=== PATIENT | female | born 1980 | race Caucasian/White ===

== ENCOUNTER 2016-09-21 09:51 | Emergency (ER) | payer MEDICAID ==
[2016-09-21] MEDS ORDERED: ONDANSETRON HCL IV 4 MG/2 ML VIAL IVP ONE (10:05)
--- NOTE | 2016-09-21 10:10 | Emergency Department Record ---
History of Present Illness - General Chief complaint: Nausea, Vomiting, Diarrhea Stated complaint: NAUSEATED/FACIAL SWELLING/DIARRHEA Time Seen by Provider: 09/21/16 10:05 Source: Patient Mode of Arrival: Ambulatory Limitations: No limitations - History of Present Illness Initial comments: 35 yo female presents to ED with a CC of nausea, vomiting, and loose stools this morning as well as "facial swelling" for the past 2-3 weeks. Patient denies fevers, chills, abdominal pain, or urinary symptoms. Patient denies dental pain or swelling. Patient reports a history of asthma. MD complaint: Nausea, Vomiting Onset/Timin -: Days(s) Associated Abdominal Pain: No Radiation: None Consistency: Intermittent Improves with: None Worsens with: None Associated Symptoms: Nausea/vomiting - Related Data Home Medications Medication Instructions Recorded Confirmed Last Taken Fluoxetine HCl 20 mg PO DAILY 05/22/14 09/21/16 09/20/16 Pregabalin [Lyrica] 75 mg PO BID 05/22/14 09/21/16 09/20/16 Albuterol Sulfate 0.083% [Neb] 3 ml NEB .EVERY 4-6 HOURS PRN 06/11/15 09/21/16 09/20/16 Budesonide/Formoterol Fumarate 2 puff INH BID 01/10/16 09/21/16 09/20/16 [Symbicort 160-4.5 Mcg Inhaler] Cetirizine HCl 10 mg PO DAILY 01/10/16 09/21/16 09/20/16 Pantoprazole Sodium [Protonix] 40 mg PO DAILYAC 01/11/16 09/21/16 09/20/16 Previous Rx's Medication Instructions Recorded Ipratropium/Albuterol [Duoneb] 3 ml INH RESP.Q6H PRN #0 ampul.neb 01/11/16 Ondansetron [Zofran Odt] 4 mg PO Q8H #20 tab.rapdis 03/30/16 Ondansetron [Zofran Odt] 4 mg PO Q6H PRN #20 tab.rapdis 09/21/16 Allergies Allergy/AdvReac Type Severity Reaction Status Date / Time No Known Drug Allergies Allergy Verified 01/10/16 18:30 Travel Screening - Travel/Exposure Within Last 30 Days Have you traveled within the last 30 days?: No - Travel/Exposure Within Last Year Have you traveled outside the [place] in the last year?: No - Additonal Travel Details Have you been exposed to anyone with a communicable illness?: No - Travel Symptoms Symptom Screening: None Review of Systems Constitutional: Denies: Chills, Malaise, Night sweats Eyes: Denies: Eye discharge, Eye pain ENT: Denies: Congestion, Ear pain, Epistaxis Respiratory: Denies: Cough, Dyspnea Cardiovascular: Denies: Chest pain, Dyspnea on exertion Endocrine: Denies: Fatigue, Heat or cold intolerance Gastrointestinal: Reports: Nausea, Vomiting. Denies: Abdominal pain Genitourinary: Denies: Dysuria, Frequency Musculoskeletal: Denies: Arthralgia, Back pain, Gout, Joint swelling, Other Skin: Denies: Bruising, Change in color, Change in hair/nails, Rash Neurological: Denies: Abnormal gait, Confusion, Headache, Seizure Psychiatric: Denies: Anxiety Hematological/Lymphatic: Denies: Anemia, Blood Clots Past Medical History - SOCIAL HISTORY Smoking Status: Former smoker Alcohol Use: None Drug Use: None - RESPIRATORY Hx Respiratory Disorders: Yes Hx Asthma: Yes - CARDIOVASCULAR Hx Cardio Disorders: Yes Hx Edema: Yes (BLE) - NEURO Hx Neuro Disorders: Yes Hx Headaches: Yes Hx Neuropathy: Yes (Bilateral hands and feet) - GI Hx GI Disorders: Yes Hx Abdominal Pain: Yes (LUQ & RLQ, increase with eatting) Hx GI Bleed: Yes (with vomiting) Hx Reflux: Yes Hx Irritable Bowel: Yes Hx Nausea/Vomiting: Yes Hx Rectal Bleeding: Yes - Hx Genitourinary Disorders: No Comment:: 10/22/14 - ENDOCRINE Hx Endocrine Disorders: No Hx Diabetes: No Hx Thyroid Disease: No - MUSCULOSKELETAL Hx Musculoskeletal Disorders: Yes Hx Fibromyalgia: Yes (generalized) Comment:: R hip issues; sees pain specialist - PSYCH Hx Psych Problems: Yes Hx Anxiety: Yes Hx Depression: Yes - HEMATOLOGY/ONCOLOGY Hx Hematology/Oncology Disorders: Yes Hx Bruising: Yes Family Medical History Any Significant Family History?: No Hx Cancer: Grandparents *Cancer Comment: lung w/ mets Hx Diabetes: Grandparents Hx HTN: Grandparents Hx Stroke: Grandparents Physical Exam - General General Appearance: Alert, Oriented x3, Cooperative, No acute distress Limitations: No limitations - Head Head exam: Atraumatic, Normocephalic, Other (very subtle STS of the maxillary region right face, no erythema, no sign of abscess. No dental abscess on examination.) Head exam detail: negative: Abrasion, Contusion, Sidhu's sign, General tenderness, Hematoma, Laceration - Eye Eye exam: Normal appearance. negative: Conjunctival injection, Periorbital swelling, Periorbital tenderness, Scleral icterus - ENT Ear exam: negative: Auricular hematoma, Auricular trauma Nasal Exam: negative: Active bleeding, Discharge, Dried blood, Foreign body Mouth exam: negative: Drooling, Laceration, Muffled voice, Tongue elevation - Neck Neck exam: Normal inspection. negative: Meningismus, Tenderness - Respiratory Respiratory exam: Normal lung sounds bilaterally. negative: Rales, Respiratory distress, Rhonchi, Stridor - Cardiovascular Cardiovascular Exam: Regular rate, Normal rhythm, Normal heart sounds - GI/Abdominal GI/Abdominal exam: Soft, Other (Abdominal examination is 100% benign on examination.). negative: Rebound, Rigid, Tenderness - Rectal Rectal exam: Deferred - exam: Deferred - Extremities Extremities exam: Normal inspection. negative: Calf tenderness, Pedal edema, Tenderness - Back Back exam: Denies: CVA tenderness (R), CVA tenderness (L) - Neurological Neurological exam: Alert, Normal gait, Oriented X3 - Psychiatric Psychiatric exam: Normal affect, Normal mood - Skin Skin exam: Normal color. negative: Abrasion Type of lesion: negative: abrasion Course Vital Signs 09/21/16 09:53 Temperature 97.7 F Pulse Rate 96 H Respiratory 16 Rate Blood Pressure 126/84 Pulse Ox 100 - Reevaluation(s) Reevaluation #1: 09/21/16 10:38 Labs reviewed and are grossly unremarkable for an acute process. Reevaluation #2: 09/21/16 10:51 Patient reassessed, reports that she is feeling much better. Patient appears stable for discharge at this time on Zofran for any recurrent nausea symptoms. Medical Decision Making - Lab Data Result diagrams: 09/21/16 10:15 09/21/16 10:15 Disposition Disposition: Discharge Clinical Impression: Nausea, vomiting and diarrhea Disposition: Home, Self-Care Condition: (2) Stable Instructions: Acute Nausea and Vomiting (ED) Additional Instructions: Return to ED if your symptoms worsen or if you have any concerns. Zofran as directed. Follow-up with your family doctor in 3-5 days as directed. Prescriptions: Ondansetron [Zofran Odt] 4 mg PO Q6H PRN #20 tab.rapdis PRN Reason: Nausea/Vomiting Forms: Patient Portal Access Time of Disposition: 10:52
[2016-09-21] MEDS ORDERED: 0.9 % SODIUM CHLORIDE 1000ML 1,000 ML IV SCH (10:15)
[2016-09-21 10:19] LABS: BASO % 0.5 % (0-6); EOS % 5.7 % (0-6); GRAN % 66.9 % (47-80); HEMATOCRIT 41.3 % (35.0-47.0); HEMOGLOBIN 13.3 gm/dl (11.6-16.0); MEAN CELL VOLUME 86.8 fl (81-97); MEAN CORPUSCULAR HEMOGLOBIN 27.9 pg (27-33); MEAN CORPUSCULAR HGB CONC 32.2 g/dl (32-36); MEAN PLATELET VOLUME 9.4 fl (7.4-10.4); MONO % 6.9 % (0-9); PLATELET COUNT 299 K/uL (130-400); RED BLOOD COUNT 4.76 M/uL (3.80-5.40); RED CELL DISTRIBUTION WIDTH 13.8 % (11.5-14.5); WHITE BLOOD COUNT W/O DIFF 7.5 K/uL (4.2-12.2)
[2016-09-21 10:31] LABS: ALB/GLOB RATIO 1.3 (1.1-1.8); ALBUMIN 4.4 gm/dL (3.5-5.0); ALKALINE PHOSPHATASE 88 U/L (38-126); ALT/SGPT 30 U/L (9-52); ANION GAP 10.2 (7-16); AST/SGOT 21 U/L (14-36); BILIRUBIN,TOTAL 0.66 mg/dL (0.2-1.3); BLOOD UREA NITROGEN 11 mg/dL (7-17); CARBON DIOXIDE 26.8 mmol/L (22-30); CREATININE 0.9 mg/dL (0.52-1.04); EST GLOMERULAR FILTRATION RATE > 60 ml/min; GLUCOSE,RANDOM 96 mg/dL (70-110); TOTAL PROTEIN 7.7 gm/dL (6.3-8.2)
== END 2016-09-21 11:09 | disposition home or self-care (01) ==
LOC: ER 09:51
DX: R11.2 Nausea with vomiting, unspecified (principal); R19.7 Diarrhea, unspecified
CPT/HCPCS: 80053; 85025; 96374; 99284; J2405; J7030

== ENCOUNTER 2018-09-22 11:18 | Emergency (ER) | payer MEDICAID ==
--- NOTE | 2018-09-22 12:18 | Emergency Department Record ---
History of Present Illness - General Chief complaint: ENT Stated complaint: SINUS CONGESTION Time Seen by Provider: 09/22/18 12:13 Source: Patient, RN notes reviewed Mode of Arrival: Ambulatory - History of Present Illness Initial comments: patient's face is red and her neck is red and she itches her neck and she has had two doses of augmentin and the rash looks like an allergic reaction to pennicillin. Patient seen at [facility] yesterday and given a shot of steroids and prednisone pills 40 mg for 5 days Also told she may need a CT scan. Patient had sinus surgery last year and polps removed Onset/Timin -: Week(s) Severity scale (1-10): 7 Improves with: None Worsens with: None - Related Data Home Medications Medication Instructions Recorded Confirmed Last Taken Beclomethasone Dipropionate [Qvar 2 inh IH BID 09/22/18 09/22/18 09/22/18 80Mcg/100 Actuat Inhaler] Previous Rx's Medication Instructions Recorded Doxycycline Hyclate 100 mg PO BID #20 cap 09/22/18 Allergies Allergy/AdvReac Type Severity Reaction Status Date / Time amoxicillin [From Augmentin] Allergy RASH Verified 09/22/18 13:52 clavulanic acid Allergy RASH Verified 09/22/18 13:52 [From Augmentin] duloxetine HCl AdvReac suicidal Unverified 09/21/18 15:26 [From Cymbalta] thoughts Travel Screening - Travel/Exposure Within Last 30 Days Have you traveled within the last 30 days?: No - Travel/Exposure Within Last Year Have you traveled outside the [place] in the last year?: No - Additonal Travel Details Have you been exposed to anyone with a communicable illness?: No - Travel Symptoms Symptom Screening: Headache Review of Systems Reviewed: No additional complaints except as noted below Constitutional: Reports: As per HPI. Denies: Chills, Fever, Malaise, Night sweats, Weakness, Weight change Eyes: Reports: As per HPI. Denies: Eye discharge, Eye pain, Photophobia, Vision change ENT: Reports: As per HPI, Other (right facial pain and red rash on face and neck ). Denies: Congestion, Dental pain, Ear pain, Epistaxis, Hearing loss, Throat pain Respiratory: Reports: As per HPI. Denies: Cough, Dyspnea, Hemoptysis, Stridor, Wheezes Cardiovascular: Reports: As per HPI. Denies: Arrhythmia, Chest pain, Dyspnea on exertion, Edema, Murmurs, Orthopnea, Palpitations, Paroxysmal nocturnal dyspnea, Rheumatic Fever, Syncope Endocrine: Reports: As per HPI. Denies: Fatigue, Heat or cold intolerance, Polydipsia, Polyuria Gastrointestinal: Reports: As per HPI. Denies: Abdominal pain, Constipation, Diarrhea, Hematemesis, Hematochezia, Melena, Nausea, Vomiting Genitourinary: Reports: As per HPI. Denies: Abnormal menses, Discharge, Dyspareunia, Dysuria, Frequency, Hematuria, Incontinence, Retention, Urgency Musculoskeletal: Reports: As per HPI. Denies: Arthralgia, Back pain, Gout, Joint swelling, Myalgia, Neck pain Skin: Reports: As per HPI. Denies: Bruising, Change in color, Change in hair/ nails, Lesions, Pruritus, Rash Neurological: Reports: As per HPI. Denies: Abnormal gait, Confusion, Headache, Numbness, Paresthesias, Seizure, Tingling, Tremors, Vertigo, Weakness Psychiatric: Reports: As per HPI. Denies: Anxiety, Auditory hallucinations, Depression, Homicidal thoughts, Suicidal thoughts, Visual hallucinations Hematological/Lymphatic: Reports: As per HPI. Denies: Anemia, Blood Clots, Easy bleeding, Easy bruising, Swollen glands Past Medical History - SOCIAL HISTORY Smoking Status: Former smoker Alcohol Use: Rare Drug Use: None - RESPIRATORY Hx Respiratory Disorders: Yes Hx Asthma: Yes Hx Bronchitis: Yes - CARDIOVASCULAR Hx Cardio Disorders: Yes Hx Edema: Yes (BLE) - NEURO Hx Neuro Disorders: Yes Hx Headaches: Yes Hx Neuropathy: Yes (Bilateral hands and feet) - GI Hx GI Disorders: Yes Hx Abdominal Pain: Yes (LUQ & RLQ, increase with eatting) Hx GI Bleed: Yes (with vomiting) Hx Reflux: Yes Hx Irritable Bowel: Yes Hx Nausea/Vomiting: Yes Hx Rectal Bleeding: Yes - Hx Genitourinary Disorders: No Comment:: 10/22/14 - ENDOCRINE Hx Endocrine Disorders: No Hx Diabetes: No Hx Thyroid Disease: No - MUSCULOSKELETAL Hx Musculoskeletal Disorders: Yes Hx Fibromyalgia: Yes (generalized) Comment:: R hip issues; sees pain specialist - PSYCH Hx Psych Problems: Yes Hx Anxiety: Yes Hx Depression: Yes - HEMATOLOGY/ONCOLOGY Hx Hematology/Oncology Disorders: Yes Hx Bruising: Yes Family Medical History Any Significant Family History?: No Hx Cancer: Grandparents *Cancer Comment: lung w/ mets Hx Diabetes: Grandparents Hx HTN: Grandparents Hx Stroke: Grandparents Physical Exam - General General Appearance: Alert, Oriented x3, Cooperative, No acute distress - Head Head exam: Normal inspection - Eye Eye exam: Normal appearance, PERRL Pupils: Normal accommodation - ENT ENT exam: Normal exam, Mucous membranes moist, Normal external ear exam, Normal orophraynx, TM's normal bilaterally, Other (red rash on face and neck and pain palpating the right maxillar sinus) Ear exam: Normal external inspection. negative: External canal tenderness Nasal Exam: Normal inspection. negative: Discharge, Sinus tenderness Mouth exam: Normal external inspection, Tongue normal Teeth exam: Normal inspection. negative: Dental caries Throat exam: Normal inspection. negative: Tonsillar erythema, Tonsillar exudate - Neck Neck exam: Normal inspection, Full ROM. negative: Tenderness - Respiratory Respiratory exam: Normal lung sounds bilaterally. negative: Respiratory distress - Cardiovascular Cardiovascular Exam: Regular rate, Normal rhythm, Normal heart sounds - GI/Abdominal GI/Abdominal exam: Soft, Normal bowel sounds. negative: Tenderness - Rectal Rectal exam: Deferred - exam: Deferred - Extremities Extremities exam: Normal inspection, Full ROM, Normal capillary refill. negative: Tenderness - Back Back exam: Reports: Normal inspection, Full ROM. Denies: Muscle spasm, Rash noted, Tenderness - Neurological Neurological exam: Alert, Normal gait, Oriented X3, Reflexes normal - Psychiatric Psychiatric exam: Normal affect, Normal mood - Skin Skin exam: Dry, Intact, Normal color, Warm Course Vital Signs 09/22/18 11:27 Temperature 99.1 F Pulse Rate 91 H Respiratory 20 Rate Blood Pressure 119/93 Pulse Ox 96 Medical Decision Making - Data Complexity [facility] Data: X-Ray Ordered and/or Reviewed (ct head negativewith sinus fluid and facial CT shows the same sinus fluid and post surgical changes) Disposition Clinical Impression: Sinusitis Qualifiers: Sinusitis location: unspecified location Chronicity: acute Recurrence: non- recurrent Qualified Code(s): J01.90 - Acute sinusitis, unspecified Allergic reaction caused by a drug Qualifiers: Encounter type: initial encounter Qualified Code(s): T78.40XA - Allergy, unspecified, initial encounter Disposition: Home, Self-Care Condition: (1) Good Instructions: Sinusitis (ED) Additional Instructions: follow up with family in 5 days stop augmentin and no more peniccillin antibiotics and you are allergic to pennicillium start doxycyline bid continue prednisone pill for 5 days as prescribed yesterday Prescriptions: Doxycycline Hyclate 100 mg PO BID #20 cap Forms: Patient Portal Access Time of Disposition: 13:54 Quality - Quality Measures Quality Measures: N/A - Blood Pressure Screening Does Patient Have Any of the Following: No Blood Pressure Classification: Hypertensive Reading Systolic Measurement: 119 Diastolic Measurement: 93 Screening for High Blood Pressure: < Pre-Hypertensive BP, F/U Documented > [ G8950] Pre-Hypertensive Follow-up Interventions: Referral to alternative/primary care provider.
== END 2018-09-22 14:03 | disposition home or self-care (01) ==
LOC: ER 11:18
DX: L27.1 Localized skin eruption due to drugs and medicaments taken internally (principal); T36.0X5A Adverse effect of penicillins, initial encounter; J01.90 Acute sinusitis, unspecified; R51 Headache; Z87.891 Personal history of nicotine dependence
CPT/HCPCS: 70450; 70486; 99283

== ENCOUNTER 2019-08-01 21:42 | Emergency (ER) | payer MEDICAID ==
[2019-08-01] MEDS ORDERED: 0.9 % SODIUM CHLORIDE 1000ML 1,000 ML IV ONE (21:48)
[2019-08-01] MEDS ORDERED: ONDANSETRON HCL IV 4 MG/2 ML VIAL IVP ONE ×2 (21:48→22:55)
--- NOTE | 2019-08-01 21:53 | Emergency Department Record ---
History of Present Illness - General Chief complaint: Vomiting Stated complaint: VOMITING Time Seen by Provider: 08/01/19 21:47 Source: Patient Mode of Arrival: Ambulatory Limitations: No limitations - History of Present Illness Initial comments: 38 yo female presents with nausea, vomiting and diarrhea intermittently since of last week. She has had some cough and fevers as well. No blood in the vomit or diarrhea. No rash. No dysuria. She states a family member had influenza last week. No significant headache. No sore throat. She has asthma. She has a mild non productive cough. She is wheezing. She has nasal congestion that forces her to mouth breath. MD complaint: Diarrhea, Nausea, Vomiting -: Days(s) (4) Description of Vomiting: Watery Description of Diarrhea: Water Location: Other Radiation: Other Severity: Moderate Quality: Other Consistency: Intermittent Improves with: None Worsens with: Eating Context: Sick contacts Associated Symptoms: Cough, Fever/chills, Loss of appetite, Malaise, Naus ea/vomiting, Weakness - Related Data Home Medications Medication Instructions Recorded Confirmed Last Taken Albuterol Sulfate [Ventolin Hfa] 1 - 2 puff IH .EVERY 4-6 HOURS PRN 08/01/19 08/01/19 1 Day Ago ~07/31/19 Previous Rx's Medication Instructions Recorded Ondansetron [Zofran Odt] 4 mg PO Q8H #15 tab.rapdis 08/01/19 Prednisone [Prednisone 20Mg] 20 mg PO BID #10 tab 08/01/19 Allergies Allergy/AdvReac Type Severity Reaction Status Date / Time amoxicillin [From Augmentin] Allergy RASH Verified 08/01/19 21:51 clavulanic acid Allergy RASH Verified 08/01/19 21:51 [From Augmentin] Penicillins Allergy RASH Verified 08/01/19 21:51 duloxetine HCl AdvReac suicidal Verified 08/01/19 21:51 [From Cymbalta] thoughts Review of Systems Constitutional: Reports: Fever, Malaise. Denies: Chills, Weakness Eyes: Denies: Eye discharge ENT: Reports: Congestion. Denies: Throat pain Respiratory: Reports: Cough Cardiovascular: Denies: Chest pain, Edema, Palpitations, Syncope Endocrine: Reports: Fatigue. Denies: Polydipsia, Polyuria Gastrointestinal: Reports: Diarrhea, Nausea, Vomiting. Denies: Abdominal pain, Constipation, Hematemesis, Hematochezia, Melena Genitourinary: Denies: Dysuria, Urgency Musculoskeletal: Denies: Arthralgia, Back pain, Myalgia Skin: Denies: Bruising, Change in color, Rash Neurological: Reports: Headache. Denies: Numbness, Tremors, Weakness Psychiatric: Denies: Anxiety Hematological/Lymphatic: Denies: Easy bleeding, Easy bruising Past Medical History - SOCIAL HISTORY Smoking Status: Former smoker Drug Use: None - RESPIRATORY Hx Respiratory Disorders: Yes Hx Asthma: Yes Hx Bronchitis: Yes - CARDIOVASCULAR Hx Cardio Disorders: Yes Hx Edema: Yes (BLE) - NEURO Hx Neuro Disorders: Yes Hx Headaches: Yes Hx Neuropathy: Yes (Bilateral hands and feet) - GI Hx GI Disorders: Yes Hx Abdominal Pain: Yes (LUQ & RLQ, increase with eatting) Hx GI Bleed: Yes (with vomiting) Hx Reflux: Yes Hx Irritable Bowel: Yes Hx Nausea/Vomiting: Yes Hx Rectal Bleeding: Yes - Hx Genitourinary Disorders: No Comment:: 10/22/14 - ENDOCRINE Hx Endocrine Disorders: No Hx Diabetes: No Hx Thyroid Disease: No - MUSCULOSKELETAL Hx Musculoskeletal Disorders: Yes Hx Fibromyalgia: Yes (generalized) Comment:: R hip issues; sees pain specialist - PSYCH Hx Psych Problems: Yes Hx Anxiety: Yes Hx Depression: Yes - HEMATOLOGY/ONCOLOGY Hx Hematology/Oncology Disorders: Yes Hx Bruising: Yes Family Medical History Hx Cancer: Grandparents *Cancer Comment: lung w/ mets Hx Diabetes: Grandparents Hx HTN: Grandparents Hx Stroke: Grandparents Physical Exam - General General Appearance: Alert, Oriented x3, Cooperative, No acute distress Limitations: No limitations - Head Head exam: Atraumatic, Normal inspection - Eye Eye exam: Normal appearance, PERRL. negative: Conjunctival injection, Scleral icterus - ENT ENT exam: Normal exam, Mucous membranes moist Ear exam: Normal external inspection Nasal Exam: Normal inspection Mouth exam: Normal external inspection Teeth exam: Normal inspection Throat exam: Normal inspection - Neck Neck exam: Normal inspection - Respiratory Respiratory exam: Decreased breath sounds, Wheezes. negative: Normal lung sounds bilaterally, Accessory muscle use, Prolonged expiratory, Respiratory distress, Rhonchi, Stridor - Cardiovascular Cardiovascular Exam: Regular rate, Normal rhythm, Normal heart sounds - GI/Abdominal GI/Abdominal exam: Soft. negative: Distended, Guarding, Tenderness - Rectal Rectal exam: Deferred - exam: Deferred - Extremities Extremities exam: Normal inspection. negative: Calf tenderness, Pedal edema - Back Back exam: Denies: CVA tenderness (R), CVA tenderness (L) - Neurological Neurological exam: Alert, Oriented X3 - Psychiatric Psychiatric exam: Normal affect, Normal mood - Skin Skin exam: Dry, Intact, Normal color, Warm Course - Reevaluation(s) Reevaluation #1: 08/01/19 22:51 The labs were reviewed No significant changes of the CBC, CMP The influenza are negative The wheezing resolved with the Duoneb Her nausea is improved 08/01/19 23:31 The patient is doing well with controlled nausea and no diarrhea at this time We discussed the DC, home care, and reasons to return Minimal wheeze at this point She was given a prescription for Zofran and Prednisone Medical Decision Making - Lab Data Result diagrams: 08/01/19 21:50 08/01/19 21:50 Disposition Disposition: Discharge Clinical Impression: Asthmatic bronchitis, Nausea, vomiting and diarrhea Disposition: Home, Self-Care Condition: (2) Stable Instructions: Acute Nausea and Vomiting (ED) Additional Instructions: Call your doctor to be seen in the next 1-2 days of not improving Return to the ER if you have pain, uncontrolled vomiting or any other concerns Prescriptions: Prednisone [Prednisone 20Mg] 20 mg PO BID #10 tab Ondansetron [Zofran Odt] 4 mg PO Q8H #15 tab.rapdis Forms: Patient Portal Access Time of Disposition: 00:15 Quality - Quality Measures Quality Measures: N/A - Blood Pressure Screening Does Patient Have Any of the Following: No Blood Pressure Classification: Pre-Hypertensive BP Reading Systolic Measurement: 116 Diastolic Measurement: 88 Screening for High Blood Pressure: < Pre-Hypertensive BP, F/U Documented > [G8950] Pre-Hypertensive Follow-up Interventions: Referral to alternative/primary care provider.
[2019-08-01] MEDS: IPRATROPIUM/ALBUTEROL (0.5MG/3MG) NEB INH ONE ×2 (21:57→23:02)
[2019-08-01 22:04] LABS: BASO % 0.3 % (0-6); EOS % 0.1 % (0-6); HEMATOCRIT 42.1 % (35.0-47.0); HEMOGLOBIN 13.9 gm/dl (11.6-16.0); LYMPH % 19.2 % (16-45); MEAN CELL VOLUME 84.2 fl (81-97); MEAN CORPUSCULAR HEMOGLOBIN 27.8 pg (27-33); MEAN PLATELET VOLUME 9.7 fl (7.4-10.4); MONO % 11.4 % (0-9); PLATELET COUNT 300 K/uL (130-400); WHITE BLOOD COUNT W/O DIFF 6.7 K/uL (4.2-12.2)
[2019-08-01 22:21] LABS: BLOOD UREA NITROGEN 15 mg/dL (6-20)
[2019-08-01 22:22] LABS: EST GLOMERULAR FILTRATION RATE > 60 mL/min; LIPASE 12 U/L (13-60); TOTAL PROTEIN 8.2 g/dL (6.6-8.7)
[2019-08-01 22:24] LABS: GLUCOSE,RANDOM 123 mg/dL (74-109); INFLUENZA A NEGATIVE (NEGATIVE); INFLUENZA B NEGATIVE (NEGATIVE)
[2019-08-01 22:27] LABS: ALB/GLOB RATIO 1.1 (1.1-1.8); ALBUMIN 4.3 g/dL (4.0-5.0); ALKALINE PHOSPHATASE 79 U/L (35-104); ALT/SGPT 18 U/L (<33); AST/SGOT 22 U/L (10.0-35.0)
[2019-08-01] MEDS ORDERED: METHYLPREDNISOLONE PF 125MG/VIAL IVP ONE (22:51)
[2019-08-01] MEDS ORDERED: 0.9 % SODIUM CHLORIDE 1,000 ML BAG IV ONE (22:55)
[2019-08-01] MEDS ORDERED: ONDANSETRON 4 MG ODT TABLET SL ONE (23:31)
== END 2019-08-01 23:49 | disposition home or self-care (01) ==
LOC: ER 21:42
DX: J45.909 Unspecified asthma, uncomplicated (principal); R11.2 Nausea with vomiting, unspecified; R19.7 Diarrhea, unspecified; Z87.891 Personal history of nicotine dependence
CPT/HCPCS: 99284 ×2; 96376; 96374; 96375; 96361; 83690; 85025; 80053; 84703; 87400; 94640 ×2; J2405; J2930; J7030